=== PATIENT | female | born 1985 | race Caucasian/White ===

== ENCOUNTER → 2020-01-22 | Outpatient (CLI) | payer BC ==
--- NOTE | 2020-01-22 14:22 | Diagnostic Imaging Report ---
INDICATION: Left wrist pain for 2 weeks. Time of exam 2:16 PM 3 views left wrist were obtained. Distal radius and ulna are intact. Carpus is intact. Metacarpals are unremarkable. No fractures are seen. IMPRESSION: No acute bony abnormality is detected. Dictated by: Dictated on workstation # [id number]
== END ==
LOC: RAD FS 13:34
PROVIDERS: ATTEND Nurse Practitioner Family
DX: M25.532 Pain in left wrist (principal)
CPT/HCPCS: 73110